=== PATIENT | male | born 2000 | race Caucasian/White ===

== ENCOUNTER 2019-06-27 20:16 | Emergency (ER) | payer OTHER ==
[~2019-06-27] VITALS: Ht 172.7 cm; Wt 72.6 kg
[2019-06-27] MEDS ORDERED: ACETAMINOPHEN 500 MG TAB (TYLENOL) PO STA (21:14)
[2019-06-27] MEDS ORDERED: NS IV 1000 ML 1,000 ML IV STA (21:15)
[2019-06-27] MEDS ORDERED: ONDANSETRON 4 MG/2 ML (SDV) Z0FRAN IVP STA (21:15)
[2019-06-27 21:21] LABS: HEMATOCRIT 40 % (40-54); HEMOGLOBIN 13.6 G/DL (13.3-17.7); MEAN CORPUSCULAR HEMOGLOBIN 30 PG (25-34); MEAN CORPUSCULAR HGB CONC 34 G/DL (32-36); MEAN CORPUSCULAR VOLUME 87 FL (80-99); WHITE BLOOD COUNT 10.1 10^3/uL (4.3-11.0)
[2019-06-27 21:22] LABS: BASOPHILS % (AUTO) 0 % (0-10); EOSINOPHILS % (AUTO) 0 % (0-10); LYMPHOCYTES # (AUTO) 0.4 X 10^3 (1.0-4.0); LYMPHOCYTES % (AUTO) 4 % (12-44); MEAN PLATELET VOLUME 11.6 FL (7.4-10.4); MONOCYTES # (AUTO) 0.6 X 10^3 (0.0-1.0); MONOCYTES % (AUTO) 6 % (0-12); NEUTROPHILS # (AUTO) 9.1 X 10^3 (1.8-7.8); NEUTROPHILS % (AUTO) 90 % (42-75); PLATELET COUNT 182 10^3/uL (130-400); RED CELL DISTRIBUTION WIDTH 12.2 % (10.0-14.5)
[2019-06-27 21:39] LABS: BUN/CREATININE RATIO 11; CARBON DIOXIDE 21 MMOL/L (21-32); CHLORIDE 97 MMOL/L (98-107); CREATININE SERUM 1.35 MG/DL (0.60-1.30); GFR ESTIMATED > 60; POTASSIUM 3.6 MMOL/L (3.6-5.0); SODIUM 136 MMOL/L (135-145)
[2019-06-27 21:40] LABS: ALANINE AMINOTRANSFERASE 23 U/L (0-55); ALKALINE PHOSPHATASE 74 U/L (40-136); BILIRUBIN,TOTAL 0.8 MG/DL (0.1-1.0); CALCIUM 10.1 MG/DL (8.5-10.1); GLUCOSE 137 MG/DL (70-105); LIPASE 11 U/L (8-78); TOTAL PROTEIN 7.5 GM/DL (6.4-8.2)
[2019-06-27 22:22] LABS: BAND NEUTROPHILS 14 %; BASOPHILS % (MANUAL) 1 %; EOSINOPHILS % (MANUAL) 0 %; LYMPHOCYTES % (MANUAL) 2 %; MONOCYTES % (MANUAL) 8 %; NEUTROPHILS % (MANUAL) 75 %; RBC MORPH NORMAL
[2019-06-27 22:31] LABS: BACTERIA,URINE TRACE /HPF; BILIRUBIN,URINE NEGATIVE (NEGATIVE); CLARITY,URINE CLEAR; COLOR,URINE YELLOW; GLUCOSE, URINE (UA) NEGATIVE (NEGATIVE); KETONES,URINE 2+ (NEGATIVE); LEUKOCYTE ESTERASE ,URINE NEGATIVE (NEGATIVE); NITRITE,URINE NEGATIVE (NEGATIVE); PROTEIN,URINE TRACE (NEGATIVE); UROBILINOGEN,URINE 0.2 MG/DL (NORMAL)
[2019-06-27] MEDS ORDERED: NS IV 1000 ML 1,000 ML IV ONE (23:30)
--- NOTE | 2019-06-27 23:39 | ED General ---
General Chief Complaint: Abdominal/GI Problems Stated Complaint: DIZZINESS, LEG/ARM CRAMPS, DIARRHEA Nursing Triage Note: Patient states that he has been having nausea, vomiting, diarrhea, fever and abdominal pain since this morning. Patient states that he took Ibuprofen this morning but nothing since then. Source of Information: Patient History of Present Illness Date Seen by Provider: Jun 27, 2019 Time Seen by Provider: 22:41 Initial Comments 18-year-old male presenting with complaints of nausea, vomiting, diarrhea with abdominal cramping and a fever since this morning. He is unsure how high his temperature was at home as he does not have the monitor at home. He has not been able to keep anything down throughout the day. He was having muscle cramps as well. He denies any ill contacts. He has had no recent tick bites or rashes. He denies any recent travel or suspicious food intake. He has no pain with urination. He's had no blood in his diarrhea. He has no dark tarry stools. He does feel lightheaded with change in positions and having some dizziness. He has had his appendix removed previously. Allergies and Home Medications Allergies Coded Allergies: No Known Drug Allergies (Unverified , 06/27/19) Patient Home Medication List Home Medication List Reviewed: Yes Review of Systems Review of Systems Constitutional: chills, dizziness (with changing positions), fever, malaise EENTM: no symptoms reported Respiratory: no symptoms reported Cardiovascular: no symptoms reported Gastrointestinal: see HPI Genitourinary: see HPI Musculoskeletal: see HPI Skin: see HPI Psychiatric/Neurological: No Symptoms Reported Past [id number]-Mejhma-Wgupct Hx Past Med/Social Hx: Reviewed Nursing Past Med/Soc Hx Patient Social History Recent Foreign Travel: No Contact w/Someone Who Travel: No Recent Infectious Disease Expo: No Recent Hopitalizations: No Ebola Symptoms: Diarrhea, Fever, Headache, Lack of Appetite, Stomach Pain, Vomiting Physical Abuse: No Sexual Abuse: No Mistreated: No Fear: No Seasonal Allergies Seasonal Allergies: No Past Medical History Surgeries: Yes (Thyroidectomy) Respiratory: No Cardiac: No Neurological: No Genitourinary: No Gastrointestinal: No Musculoskeletal: No Endocrine: Yes HEENT: No Cancer: Yes Thyroid Did You Recieve Any Treatments: Yes What Type of Treatment Did You: Surgical Intervention Psychosocial: No Integumentary: No Physical Exam Vital Signs Vital Signs - First Documented 06/27/19 06/28/19 20:56 00:05 Temp 102.9 Pulse 106 Resp 20 B/P (MAP) 123/56 Pulse Ox 97 O2 Delivery Room Air Capillary Refill : Height, Weight, BMI Height: 5'8.00" Weight: 160lbs. 0oz. [id number]; 21.09 BMI Method:Stated General Appearance: WD/WN, Mild Distress, Thin HEENT: PERRL/EOMI; No Moist Mucous Membranes (dry mucous membranes) Neck: Full Range of Motion, Normal Inspection, Non Tender, Supple Respiratory: Chest Non Tender, Lungs Clear, Normal Breath Sounds Cardiovascular: Regular Rate, Rhythm, Normal Peripheral Pulses Gastrointestinal: Normal Bowel Sounds, No Pulsatile Mass, Soft; No Distended, No Guarding, No Mass, No Rebound; Tenderness (mild diffuse tenderness) Rectal: Deferred Back: Normal Inspection, No CVA Tenderness Extremity: Normal Capillary Refill, Normal Inspection, Normal Range of Motion, Non Tender, No Calf Tenderness, No Pedal Edema Neurologic/Psychiatric: Alert, Oriented x3, No Motor/Sensory Deficits Skin: Normal Color, Warm/Dry Focused Exam Lactate Level 06/27/19 21:26: Lactic Acid Level 1.64 Lactic Acid Level Progress/Results/Core Measures Suspected Sepsis SIRS Temperature:102.9 Pulse: Respiratory Rate: Laboratory Tests 06/27/19 21:00: White Blood Count 10.1 Blood Pressure / Mean: 06/27/19 21:26: Lactic Acid Level 1.64 Laboratory Tests 06/27/19 21:00: Creatinine 1.35H, Platelet Count 182, Total Bilirubin 0.8 Results/Orders Lab Results Laboratory Tests Test 06/27/19 21:00 06/27/19 21:26 06/27/19 22:04 06/27/19 22:16 Range/Units White Blood Count 10.1 4.3-11.0 10^3/uL Red Blood Count 4.60 4.35-5.85 10^6/uL Hemoglobin 13.6 13.3-17.7 G/DL Hematocrit 40 40-54 % Mean Corpuscular Volume 87 80-99 FL Mean Corpuscular Hemoglobin 30 25-34 PG Mean Corpuscular Hemoglobin Concent 34 32-36 G/DL Red Cell Distribution Width 12.2 10.0-14.5 % Platelet Count 182 130-400 10^3/uL Mean Platelet Volume 11.6 H 7.4-10.4 FL Neutrophils (%) (Auto) 90 H 42-75 % Lymphocytes (%) (Auto) 4 L 12-44 % Monocytes (%) (Auto) 6 0-12 % Eosinophils (%) (Auto) 0 0-10 % Basophils (%) (Auto) 0 0-10 % Neutrophils # (Auto) 9.1 H 1.8-7.8 X 10^3 Lymphocytes # (Auto) 0.4 L 1.0-4.0 X 10^3 Monocytes # (Auto) 0.6 0.0-1.0 X 10^3 Eosinophils # (Auto) 0.0 0.0-0.3 10^3/uL Basophils # (Auto) 0.0 0.0-0.1 10^3/uL Neutrophils % (Manual) 75 % Lymphocytes % (Manual) 2 % Monocytes % (Manual) 8 % Eosinophils % (Manual) 0 % Basophils % (Manual) 1 % Band Neutrophils 14 % Blood Morphology Comment NORMAL Sodium Level 136 135-145 MMOL/L Potassium Level 3.6 3.6-5.0 MMOL/L Chloride Level 97 L 98-107 MMOL/L Carbon Dioxide Level 21 21-32 MMOL/L Anion Gap 18 H 5-14 MMOL/L Blood Urea Nitrogen 15 7-18 MG/DL Creatinine 1.35 H 0.60-1.30 MG/DL Estimat Glomerular Filtration Rate > 60 BUN/Creatinine Ratio 11 Glucose Level 137 H 70-105 MG/DL Calcium Level 10.1 8.5-10.1 MG/DL Corrected Calcium 8.5-10.1 MG/DL Total Bilirubin 0.8 0.1-1.0 MG/DL Aspartate Amino Transf (AST/SGOT) 19 5-34 U/L Alanine Aminotransferase (ALT/SGPT) 23 0-55 U/L Alkaline Phosphatase 74 40-136 U/L Total Protein 7.5 6.4-8.2 GM/DL Albumin 5.0 H 3.2-4.5 GM/DL Lipase 11 8-78 U/L Lactic Acid Level 1.64 0.50-2.00 MMOL/L Magnesium Level 2.1 1.6-2.4 MG/DL Urine Color YELLOW Urine Clarity CLEAR Urine pH 6.0 5-9 Urine Specific [place] 1.020 1.016-1.022 Urine Protein TRACE NEGATIVE Urine Glucose (UA) NEGATIVE NEGATIVE Urine Ketones 2+ H NEGATIVE Urine Nitrite NEGATIVE NEGATIVE Urine Bilirubin NEGATIVE NEGATIVE Urine Urobilinogen 0.2 NORMAL MG/DL Urine Leukocyte Esterase NEGATIVE NEGATIVE Urine RBC (Auto) NEGATIVE NEGATIVE Urine RBC NONE /HPF Urine WBC NONE /HPF Urine Crystals NONE /LPF Urine Bacteria TRACE /HPF Urine Casts NONE /LPF Urine Mucus MODERATE H /LPF Urine Culture Indicated NO My Orders Orders - GLORY MANRIQUEZ MD Comprehensive Metabolic Panel (06/27/19 21:14) Lipase (06/27/19 21:14) Ua Culture If Indicated (06/27/19 21:14) Ed Iv/Invasive Line Start (06/27/19 21:14) Cbc With Automated Diff (06/27/19 21:14) Acetaminophen Tablet (Tylenol Tablet) (06/27/19 21:14) Ondansetron Injection (Zofran Injectio (06/27/19 21:15) Ns Iv 1000 Ml (Sodium Chloride 0.9%) (06/27/19 21:15) Blood Culture (06/27/19 21:18) Lactic Acid Analyzer (06/27/19 21:18) Magnesium (06/27/19 21:18) Manual Differential (06/27/19 21:00) Ns Iv 1000 Ml (Sodium Chloride 0.9%) (06/27/19 23:30) Rx-Ondansetron Po (Rx-Zofran Po) (06/28/19 00:00) Medications Given in ED Current Medications Medications Dose Ordered Sig/Rosina Route Start Time Stop Time Status Last Admin Dose Admin Ondansetron HCl 4 mg Q6H PRN PO 06/28/19 00:00 06/28/19 00:25 DC 06/28/19 00:12 4 MG Sodium Chloride 1,000 ml @ 999 mls/hr Q1H1M ONCE IV 06/27/19 23:30 06/28/19 00:25 DC 06/27/19 23:32 999 MLS/HR Vital Signs/I&O 06/27/19 06/28/19 20:56 00:05 Temp 102.9 99.2 Pulse 106 86 Resp 20 18 B/P (MAP) 123/56 Pulse Ox 97 O2 Delivery Room Air Room Air 06/28/19 00:00 Intake Total 1000 ml Balance 1000 ml Capillary Refill : Progress Note #1: Progress Note Obtain labs and blood cultures will lactic acid due to his high fever. Give Tylenol and IV fluids to help with his temperature and hydration. Give Zofran to help with his nausea and abdominal pain and cramping. Progress Note #2: Progress Note On recheck the patient's symptoms were improving. He was tolerating oral intake. Has labs were reviewed with the patient. He had normal CBC and his chemistry was showing showing mild elevation of his creatinine. His LFTs were normal. Reviewed that this looks like it might be more of a viral infection. Counseled that he would get additional bag of IV fluids and provided he was tolerating some additional oral intake he was continuing to do well he would be discharged home with some dissolving nausea tablets. Continued to encourage fluids at home. Counseled on follow-up and return precautions. Progress Note #3: Progress Note On recheck he was continuing to feel better after the second bag of fluids. He was continuing to do well with taking oral intake. Discharged home with a take home pack of Zofran ODT tablets. Counseled on follow-up and return precautions. Advised that this seemed to be more of a viral infection and he did not have signs of sepsis. However if he had worsening symptoms or is not improving within 24-48 hours to return or if he had significantly worse symptoms to return immediately or seek medical care Departure Impression Primary Impression: Viral gastroenteritis Additional Impressions: Fever in adult Dehydration Viral syndrome Disposition: 01 HOME, SELF-CARE Condition: Stable Departure-Patient Inst. Decision time for Depature: 00:01 Referrals: NO,LOCAL PHYSICIAN (PCP/Family) Primary Care Physician Patient Instructions: Dehydration, Adult (DC), Viral Syndrome (DC), Viral Zoila roenteritis, Adult (DC) Add. Discharge Instructions: Stay well hydrated and get plenty of rest Follow up with clinic for continued symptoms or more concerns Return to ER for worsening problems Use the dissolving nausea medicine to help settle your stomach so you can stay better hydrated All discharge instructions reviewed with patient and/or family. Voiced understanding. GLORY MANRIQUEZ MD Jun 27, 2019 23:39
[2019-06-28] MEDS ORDERED: RX-ONDANSETRON 4 MG ODT (ZOFRAN) PPK #4 PO PRN
== END 2019-06-28 00:05 | disposition home or self-care (01) ==
LOC: ER FS 20:19
DX: A08.4 Viral intestinal infection, unspecified (principal); B34.9 Viral infection, unspecified; E86.0 Dehydration; Z85.850 Personal history of malignant neoplasm of thyroid
CPT/HCPCS: 36415; 80053; 81000; 83605; 83690; 83735; 85007; 85027; 87040